=== PATIENT | female | born 1985 | race African-American/Black ===

== ENCOUNTER 2017-12-16 12:55 | Emergency (ER) | payer OTHER ==
[2017-12-16 13:11] VITALS: BP 102/55; PULSE 97; TEMP 98.4; BMI 23.6
--- NOTE | 2017-12-16 14:15 | PDOC ---
History of Present Illness - General Chief Complaint: Pain Stated Complaint: LT HAND PAIN Time Seen by Provider: 12/16/17 13:14 History Source: Patient - History of Present Illness Occurred: reports: other Upper Extremity Pain Location: left: thumb Past History - Past Medical History Allergies/Adverse Reactions: Allergies Allergy/AdvReac Type Severity Reaction Status Date / Time No Known Allergies Allergy Verified 12/16/17 13:11 Home Medications: Ambulatory Orders NK [No Known Home Medication] 12/16/17 COPD: No - Suicide/Smoking/Psychosocial Hx Smoking History: Never smoked Information on smoking cessation initiated: No Drug/Substance Use Hx: No Substance Use Type: None Review of Systems - Review of Systems HEENTM: No: Nose Congestion Respiratory: Yes: Cough Musculoskeletal: Yes: Joint Pain. No: Joint Swelling *Physical Exam - Vital Signs Last Vital Signs Temp Pulse Resp BP Pulse Ox 98.4 F 97 H 18 102/55 99 12/16/17 13:09 12/16/17 13:09 12/16/17 13:09 12/16/17 13:09 12/16/17 13:09 - Physical Exam General Appearance: Yes: Appropriately Dressed. No: Apparent Distress HEENT: positive: Normal ENT Inspection, Normal Voice, Pharynx Normal. negative : Scleral Icterus (R), Scleral Icterus (L) Neck: positive: Supple. negative: Lymphadenopathy (R), Lymphadenopathy (L) Respiratory/Chest: negative: Respiratory Distress Extremity: positive: Normal Inspection, Normal Range of Motion. negative: Tender, Swelling Integumentary: positive: Dry, Warm Neurologic: positive: Fully Oriented, Alert, Normal Mood/Affect Medical Decision Making - Medical Decision Making 12/16/17 14:16 32-year-old female, no significant history, presents with L thumb pain that has been ongoing for several months. Patient states symptoms started after she had a baby. States pain worse when picking up her child or opening containers. Has not taking anything for pain. No sensory changes. No specific trauma. Patient here for medical evaluation for the first time as pain persistent. Also complaining of dry cough and congestion x several days. No sore throat, ear pain, fever, chills or body aches. No known sick contacts. Patient well- appearing and stable with unremarkable exam. Thumb pain possible 2/2 to overuse injury. Dc with hand referral, motrin as needed. Patient to take over- the-counter meds for viral URI. *DC/Admit/Observation/Transfer Diagnosis at time of Disposition: Chronic thumb pain Qualifiers: Laterality: left Qualified Code(s): M79.645 - Pain in left finger(s); G89.29 - Other chronic pain; G89.29 - Other chronic pain URI (upper respiratory infection) Qualifiers: URI type: unspecified viral URI Qualified Code(s): J06.9 - Acute upper respiratory infection, unspecified - Discharge Dispostion Disposition: HOME Condition at time of disposition: Good - Referrals Referrals: Nataly Churchill MD, MD [Primary Care Provider] - Derick Nunez MD [Staff Physician] - - Patient Instructions Additional Instructions: The cause of your thumb pain might be muscular, but you will need further evaluation by an orthopedic doctor. Please follow-up with Dr. Nunez in one week For your viral URI, take [id number] medication as needed - Post Discharge Activity
== END 2017-12-16 14:12 | disposition home or self-care (01) ==
LOC: JERFT 12:55
DX: J06.9 Acute upper respiratory infection, unspecified (principal); M25.542 Pain in joints of left hand; M79.645 Pain in left finger(s); G89.29 Other chronic pain
CPT/HCPCS: 99281-25